=== PATIENT | male | born 1940 | race Caucasian/White ===

== ENCOUNTER 2017-08-04 18:08 | Inpatient (IN) | payer MEDICARE, OTHER ==
[~2017-08-04] VITALS: Ht 170.2 cm; Wt 97.1 kg
[2017-08-04 18:15] VITALS: BP 162/66; PULSE 77; RESP 15; TEMP 98; O2SAT 95
[2017-08-04] MEDS ORDERED: ATOR10TA15 PO (18:59)
[2017-08-04] MEDS ORDERED: CLIN300C5 PO (18:59)
[2017-08-04] MEDS ORDERED: CARV6.252 PO (18:59)
[2017-08-04] MEDS ORDERED: HYDR12.57 PO (18:59)
[2017-08-04] MEDS ORDERED: EMPA1TAB15 PO (18:59)
[2017-08-04] MEDS ORDERED: INSU1INJ14 SQ (18:59)
[2017-08-04] MEDS ORDERED: LEVO150T7 PO (18:59)
[2017-08-04] MEDS ORDERED: GABA300C5 PO (18:59)
[2017-08-04] MEDS ORDERED: DONE5TAB7 PO (18:59)
[2017-08-04] MEDS ORDERED: VICT18IN SQ (18:59)
[2017-08-04] MEDS ORDERED: VANCOMYCIN INJ 1,000 MG in SODIUM CHLOR 0.9% 250 ML INJ 250 ML IV ONE (19:30)
[2017-08-04] MEDS ORDERED: PIPERACIL-TAZO 3.375 GM PREMIX 50 ML IV ONE (19:30)
--- NOTE | 2017-08-04 19:48 | PD ---
HPI Chief Complaint: Skin Problem Time Seen by Provider: 19:09 Travel History International Travel<30 days: No Contact w/Intl Traveler<30days: No Traveled to known affect area: No History of Present Illness HPI pt is IDDM male was in [facility] for 2 days discharged today Parul after 24-36 hrs [place] [facility] IV antibiotic and I and D for a RUQ lateral abdo abscess with cellultis . Pt now has worsenig of his abscess cellilitis spreading outside of the lines drawn around his infection . Pt denies fever no vomit . is taking PO clinda but cellulitis worsening. Pt has HTN and DM . pt non toxic and pain is localized to the RUQ area of abscess with mild purulence coming out of wound , area cellulitis 7 cm round and central eschar is purulent 2 cm PFSH Past Medical History Cancer: Yes (prostate, thyroid) High Cholesterol: Yes Diabetes: Yes Patient Takes Glucophage: Yes Past Surgical History Thoracic Surgery: Yes Other Surgery: Yes (thyroidectomy) Social History Alcohol Use: No Tobacco Use: No Substance Use: No Allergies-Medications (Allergen,Severity, Reaction): Coded Allergies: No Known Allergies (Unverified , 08/04/17) Reported Meds & Prescriptions Reported Meds & Active Scripts Active Reported Clindamycin (Clindamycin HCl) 300 Mg Cap 300 Mg PO Q8H Victoza Inj (Liraglutide Inj) 18 Mg/3 Ml Pen 1.2 Mg SQ DAILY Levothyroxine (Levothyroxine Sodium) 150 Mcg Tab 150 Mcg PO DAILY Tresiba Flextouch Pen Inj (Insulin Degludec Inj) 300 unit/3 ML Pen 60 Units SQ DAILY Hydrochlorothiazide 12.5 Mg Cap 12.5 Mg PO DAILY Gabapentin 300 Mg Cap 300 Mg PO TID Synjardy (Empagliflozin-Metformin) 5-1,000 Mg Tab 1 Tab PO BIDPC Donepezil 5 Mg Tab 5 Mg PO HS Carvedilol 6.25 Mg Tab 6.25 Mg PO BID Atorvastatin (Atorvastatin Calcium) 10 Mg Tab 10 Mg PO HS Physical Exam Narrative GENERAL: pt is awake alert [place] and has bandage over his RUQ lateral aspect SKIN: Warm and dry. HEAD: Atraumatic. Normocephalic. EYES: Pupils equal and round. No scleral icterus. No injection or drainage. ENT: No nasal bleeding or discharge. Mucous membranes pink and moist. NECK: Trachea midline. No JVD. CARDIOVASCULAR: Regular rate and rhythm. RESPIRATORY: No accessory muscle use. Clear to auscultation. Breath sounds equal bilaterally. GASTROINTESTINAL: Abdomen RUQ lateral aspect has cellulits and central escahar pus centeral and radiates out erythema pass lines drawn with sonido MUSCULOSKELETAL: Extremities without clubbing, cyanosis, or edema. No obvious deformities. NEUROLOGICAL: Awake and alert. No obvious cranial nerve deficits. Motor grossly within normal limits. Five out of 5 muscle strength in the arms and legs. Normal speech. PSYCHIATRIC: Appropriate mood and affect; insight and judgment normal. Data Data Last Documented VS Vital Signs Date Time Temp Pulse Resp B/P (MAP) Pulse Ox O2 Delivery O2 Flow Rate FiO2 08/04/17 18:15 98.0 77 15 162/66 (98) 95 Orders Orders Complete Blood Count With Diff (08/04/17 19:28) Comprehensive Metabolic Panel (08/04/17 19:28) Creatine Kinase (Cpk) (08/04/17 19:28) Blood Culture (08/04/17 19:28) Lactic Acid (08/04/17 19:28) Vancomycin Inj (Vancomycin Inj) (08/04/17 19:30) Piperacil-Tazo 3.375 Gm Premix (Zosyn 3. (08/04/17 19:30) Sal Marley MD Aug 04, 2017 19:48
[2017-08-04 20:11] LABS: AUTOMATED NEUTROPHIL # 4.7 TH/MM3 (1.8-7.7); BASOPHIL # 0.1 TH/MM3 (0-0.2); BASOPHIL % 0.9 % (0.0-2.0); EOSINOPHIL # 0.3 TH/MM3 (0-0.4); EOSINOPHIL % 3.4 % (0.0-4.0); HEMATOCRIT 50.5 % (39.0-51.0); HEMOGLOBIN 16.9 GM/DL (13.0-17.0); LYMPH % 26.2 % (9.0-44.0); MEAN CELL VOLUME 85.9 FL (80.0-100.0); MEAN CORPUSCULAR HEMOGLOBIN 28.7 PG (27.0-34.0); MEAN CORPUSCULAR HGB CONC 33.4 % (32.0-36.0); MEAN PLATELET VOLUME 8.6 FL (7.0-11.0); MONOCYTE # 0.7 TH/MM3 (0-0.9); NEUT % 60.5 % (16.0-70.0); PLATELET COUNT 194 TH/MM3 (150-450); RED BLOOD COUNT 5.88 MIL/MM3 (4.50-5.90); RED CELL DISTRIBUTION WIDTH 14.8 % (11.6-17.2); WHITE BLOOD COUNT 7.8 TH/MM3 (4.0-11.0)
[2017-08-04 20:31] LABS: ALBUMIN 3.5 GM/DL (3.4-5.0); AST (GOT) 23 U/L (15-37); BICARBONATE 26.2 MEQ/L (21.0-32.0); BLOOD UREA NITROGEN 15 MG/DL (7-18); CALCIUM 8.9 MG/DL (8.5-10.1); CHLORIDE 104 MEQ/L (98-107); CREATININE 1.17 MG/DL (0.60-1.30); GLOMERULAR FILTRATION RATE 61 ML/MIN (>89); GLUCOSE,RANDOM 85 MG/DL (74-106); SODIUM (NA) 139 MEQ/L (136-145)
[2017-08-04 20:32] LABS: ALT (GPT) 27 U/L (12-78)
[2017-08-04 20:34] LABS: ALKALINE PHOSPHATASE 87 U/L (45-117); TOTAL BILIRUBIN ADULT 0.5 MG/DL (0.2-1.0); TOTAL PROTEIN 7.5 GM/DL (6.4-8.2)
[2017-08-04 21:12] LABS: BANDS 1 % (0-6); BASOPHILS 2 % (0-2); LYMPHOCYTES 21 % (9-44); MONOCYTES 6 % (0-8); NEUTROPHIL # MANUAL DIFF 5.2 TH/MM3 (1.8-7.7); POLYS (SEG NEUTROPHILS) 66 % (16-70)
[2017-08-04 21:21] VITALS: BP 147/67; PULSE 65; RESP 17; O2SAT 95
[2017-08-05] MEDS ORDERED: Vancomycin Consult Pharmacy 1 EA OTHER SCH (00:30)
[2017-08-05] MEDS ORDERED: GLUCAGON 1 MG/ML VIAL OTHER PRN (00:30)
[2017-08-05] MEDS ORDERED: ACETAMINOPHEN 325 MG TAB PO PRN (00:30)
[2017-08-05] MEDS ORDERED: LACTULOSE SYRUP 20 GM/30 ML CUP PO PRN (00:30)
[2017-08-05] MEDS ORDERED: NALOXONE HCL 0.4 MG/ML AMP IV PUSH PRN (00:30)
[2017-08-05] MEDS ORDERED: DEXTROSE 50% IN WATER 50 ML VIAL(D50) IV PUSH PRN (00:30)
[2017-08-05] MEDS ORDERED: ONDANSETRON HCL 4 MG/2 ML VIAL IVP PRN (00:30)
[2017-08-05] MEDS ORDERED: BISACODYL 10 MG SUPP RECTAL PRN (00:30)
[2017-08-05] MEDS ORDERED: MAGNESIUM HYDROXIDE SUSP 30 ML CUP PO PRN (00:30)
[2017-08-05] MEDS ORDERED: SODIUM CHLORIDE 0.9% FLUSH 10 ML FLUSH IV FLUSH PRN (00:30)
[2017-08-05] MEDS ORDERED: SENNOSIDES 8.6 MG TAB PO PRN (00:30)
[2017-08-05 00:48] VITALS: BP 139/70; PULSE 74; RESP 18; O2SAT 95
[2017-08-05] MEDS ORDERED: VANCOMYCIN 1,000 MG/NS 250 ML IV ONE ×2 (01:00)
[2017-08-05] MEDS: HEPARIN SODIUM - SQ 10,000 UNITS/ML VIAL SQ SCH ×3 (01:15→13:17)
[2017-08-05] MEDS: PIPERACIL-TAZO 3.375 GM PREMIX 50 ML IV SCH ×4 (02:00→19:59)
[2017-08-05 02:21] VITALS: BP 141/63; PULSE 71; RESP 18; TEMP 97.2; O2SAT 95
--- NOTE | 2017-08-05 04:01 | HHI.HP ---
HPI Service [facility] Primary Care Physician Larry Rivers III, MD Admission Diagnosis Cellulitis of abdo failing outpt PO antiBx Diagnoses: Travel History International Travel<30 Days: No Contact w/Intl Traveler <30 Da: No Traveled to Known Affected Are: No History of Present Illness 80-year-old male with a past medical history significant for diabetes mellitus, hypothyroidism, hypertension and hyperlipidemia presents to the emergency department for evaluation of cellulitis of his back. The patient was released from [facility] yesterday morning after being treated with IV vancomycin and clindamycin. He was discharged on oral clindamycin. Wound cultures were "inconclusive" per the family. Incision and drainage was performed to the emergency department with minimal expression of purulent material. CT of the chest showed minimally ill-defined fat stranding containing punctate pockets of air compatible with cellulitis and no well organized walled off peripherally enhancing fluid collection. Since his discharge from the hospital the area of erythema has expanded. There are 2 small incisions draining purulent material. No fevers/chills. No chest pain or shortness of breath. No abdominal pain. No nausea/vomiting/diarrhea. No lateralizing signs/symptoms. Review of Systems Except as stated in HPI: all other systems reviewed are Neg Past Family Social History Past Medical History diabetes mellitus, hypothyroidism, hypertension and hyperlipidemia Past Surgical History Thyroidectomy Prostatectomy Thoracotomy Reported Medications Reported Meds & Active Scripts Active Reported Clindamycin (Clindamycin HCl) 300 Mg Cap 300 Mg PO Q8H Victoza Inj (Liraglutide Inj) 18 Mg/3 Ml Pen 1.2 Mg SQ DAILY Levothyroxine (Levothyroxine Sodium) 150 Mcg Tab 150 Mcg PO DAILY Tresiba Flextouch Pen Inj (Insulin Degludec Inj) 300 unit/3 ML Pen 60 Units SQ DAILY Hydrochlorothiazide 12.5 Mg Cap 12.5 Mg PO DAILY Gabapentin 300 Mg Cap 300 Mg PO TID Synjardy (Empagliflozin-Metformin) 5-1,000 Mg Tab 1 Tab PO BIDPC Donepezil 5 Mg Tab 5 Mg PO HS Carvedilol 6.25 Mg Tab 6.25 Mg PO BID Atorvastatin (Atorvastatin Calcium) 10 Mg Tab 10 Mg PO HS Allergies: Coded Allergies: No Known Allergies (Unverified , 08/04/17) Family History Negative for CAD/DM Social History Negative for alcohol, tobacco and illicit drugs Physical Exam Vital Signs Vital Signs Date Time Temp Pulse Resp B/P (MAP) Pulse Ox O2 Delivery O2 Flow Rate FiO2 08/05/17 02:21 97.2 71 18 141/63 (89) 95 08/05/17 01:18 08/05/17 00:48 74 18 139/70 (93) 95 Room Air 08/04/17 21:21 65 17 147/67 (93) 95 Room Air 08/04/17 18:15 98.0 77 15 162/66 (98) 95 Physical Exam GENERAL: male lying in bed SKIN: Large area of erythema on the right upper back/side with 2 draining areas of purulent material. No fluctuance or induration. HEAD: Atraumatic. Normocephalic. No temporal or scalp tenderness. EYES: Pupils equal round and reactive. Extraocular motions intact. No scleral icterus. No injection or drainage. ENT: Nose without bleeding, purulent drainage or septal hematoma. Throat without erythema, tonsillar hypertrophy or exudate. Uvula midline. Airway patent. NECK: Trachea midline. No JVD or lymphadenopathy. Supple, nontender, no meningeal signs. CARDIOVASCULAR: Regular rate and rhythm without murmurs, gallops, or rubs. RESPIRATORY: Clear to auscultation. Breath sounds equal bilaterally. No wheezes , rales, or rhonchi. GASTROINTESTINAL: Abdomen soft, non-tender, nondistended. No hepato-splenomegaly , or palpable masses. No guarding. MUSCULOSKELETAL: Extremities without clubbing, cyanosis, or edema. No joint tenderness, effusion, or edema noted. No calf tenderness. NEUROLOGICAL: Awake and alert. Cranial nerves II through XII intact. Motor and sensory grossly within normal limits. Normal speech. Laboratory Laboratory Tests Test 08/04/17 19:33 White Blood Count 7.8 Red Blood Count 5.88 Hemoglobin 16.9 Hematocrit 50.5 Mean Corpuscular Volume 85.9 Mean Corpuscular Hemoglobin 28.7 Mean Corpuscular Hemoglobin Concent 33.4 Red Cell Distribution Width 14.8 Platelet Count 194 Mean Platelet Volume 8.6 Neutrophils (%) (Auto) 60.5 Lymphocytes (%) (Auto) 26.2 Monocytes (%) (Auto) 9.0 Eosinophils (%) (Auto) 3.4 Basophils (%) (Auto) 0.9 Neutrophils # (Auto) 4.7 Lymphocytes # (Auto) 2.0 Monocytes # (Auto) 0.7 Eosinophils # (Auto) 0.3 Basophils # (Auto) 0.1 CBC Comment AUTO DIFF Differential Total Cells Counted 100 Neutrophils % (Manual) 66 Band Neutrophils % 1 Lymphocytes % 21 Monocytes % 6 Eosinophils % 4 Basophils % 2 Neutrophils # (Manual) 5.2 Differential Comment FINAL DIFF MANUAL Platelet Estimate NORMAL Platelet Morphology Comment NORMAL Blood Urea Nitrogen 15 Creatinine 1.17 Random Glucose 85 Total Protein 7.5 Albumin 3.5 Calcium Level 8.9 Alkaline Phosphatase 87 Aspartate Amino Transf (AST/SGOT) 23 Alanine Aminotransferase (ALT/SGPT) 27 Total Bilirubin 0.5 Sodium Level 139 Potassium Level 3.9 Chloride Level 104 Carbon Dioxide Level 26.2 Anion Gap 9 Estimat Glomerular Filtration Rate 61 Lactic Acid Level 0.9 Total Creatine Kinase 213 Date/Time Source Procedure Growth Status 08/04/17 19:33 Blood Peripheral Aerobic Blood Culture Pending Received 08/04/17 19:33 Blood Peripheral Anaerobic Blood Culture Pending Received 08/04/17 23:15 Wound Abdomen Gram Stain Pending Received 08/04/17 23:15 Wound Abdomen Wound Culture Pending Received Result Diagram: 08/04/17193208/04/171932 Caprini VTE Risk Assessment Caprini VTE Risk Assessment: Mod/High Risk (score >= 2) Caprini Risk Assessment Model Point Value = 1 Point Value = 2 Point Value = 3 Point Value = 5 Age 41-60 Minor surgery BMI > 25 kg/m2 Swollen legs Varicose veins or History of unexplained or recurrent spontaneous Oral contraceptives or hormone replacement Sepsis (< 1 month) Serious lung disease, including pneumonia (< 1 month) Abnormal pulmonary function Acute myocardial infarction Congestive heart failure (< 1 month) History of inflammatory bowel disease Medical patient at bed rest Age 61-74 Arthroscopic surgery Major open surgery (> 45 min) Laparoscopic surgery (> 45 min) Malignancy Confined to bed (> 72 hours) Immobilizing plaster cast Central venous access Age >= 75 History of VTE Family history of VTE Factor V Leiden Prothrombin [id number] Lupus anticoagulant Anticardiolipin antibodies Elevated serum homocysteine Heparin-induced thrombocytopenia Other congenital or acquired thrombophilia Stroke (< 1 month) Elective arthroplasty Hip, pelvis, or leg fracture Acute spinal cord injury (< 1 month) Prophylaxis Regimen Total Risk Factor Score Risk Level Prophylaxis Regimen 0-1 Low Early ambulation 2 Moderate Order ONE of the following: *Sequential Compression Device (SCD) *Heparin 5000 units SQ BID 3-4 Higher Order ONE of the following medications: *Heparin 5000 units SQ TID *Enoxaparin/Lovenox 40 mg SQ daily (WT < 150 kg, CrCl > 30 mL/min) *Enoxaparin/Lovenox 30 mg SQ daily (WT < 150 kg, CrCl > 10-29 mL/min) *Enoxaparin/Lovenox 30 mg SQ BID (WT < 150 kg, CrCl > 30 mL/min) AND/OR *Sequential Compression Device (SCD) 5 or more Highest Order ONE of the following medications: *Heparin 5000 units SQ TID (Preferred with Epidurals) *Enoxaparin/Lovenox 40 mg SQ daily (WT < 150 kg, CrCl > 30 mL/min) *Enoxaparin/Lovenox 30 mg SQ daily (WT < 150 kg, CrCl > 10-29 mL/min) *Enoxaparin/Lovenox 30 mg SQ BID (WT < 150 kg, CrCl > 30 mL/min) AND *Sequential Compression Device (SCD) Assessment and Plan Assessment and Plan Assessment/plan: 1. Cellulitis CT of the thorax done at [facility] did not show any distinct abscess, results personally reviewed Status post vancomycin and clindamycin at [facility], discharged on p.o. clindamycin Vancomycin/Zosyn Blood/wound cultures pending Tailor antibiotics once cultures result 2. Diabetes mellitus Sliding-scale insulin Monitor blood glucose 3. Hypothyroidism/hypertension/hyperlipidemia Continue home medications FEN Heart healthy, diabetic diet Electrolytes: Monitor and replete as needed Heparin Physician Certification 2 Midnight Certification Type: Admission for Inpatient Services Order for Inpatient Services The services are ordered in accordance with Medicare regulations or non- Medicare payer requirements, as applicable. In the case of services not specified as inpatient-only, they are appropriately provided as inpatient services in accordance with the 2-midnight benchmark. Estimated LOS (days): 2 2 days is the estimated time the patient will need to remain in the hospital, assuming treatment plan goals are met and no additional complications. Post-Hospital Plan: Not yet determined Mary Anne Mccray MD Aug 05, 2017 04:00
[2017-08-05] MEDS: LEVOTHYROXINE SODIUM 150 MCG TAB PO SCH (06:22)
[2017-08-05] MEDS ORDERED: VANCOMYCIN INJ 1,000 MG in SODIUM CHLOR 0.9% 250 ML INJ 250 ML IV SCH (07:30)
[2017-08-05] MEDS: INSULIN ASPART SUPPLEMENTAL SCALE SQ SCH ×4 (07:59→20:06)
[2017-08-05 08:00] VITALS: BP 136/66; PULSE 60; RESP 20; TEMP 97.4; O2SAT 94
[2017-08-05] MEDS: HYDROCHLOROTHIAZIDE 12.5 MG CAP PO SCH (08:01)
[2017-08-05] MEDS: CARVEDILOL 6.25 MG TAB PO SCH ×2 (08:01→20:00)
[2017-08-05] MEDS: GABAPENTIN 300 MG CAP PO SCH ×3 (08:01→17:05)
[2017-08-05] MEDS: SODIUM CHLORIDE 0.9% FLUSH 10 ML FLUSH IV FLUSH SCH ×2 (08:01→20:00)
[2017-08-05] MEDS: DOCUSATE SODIUM 50 MG/SENNA 8.6 MG TAB PO SCH ×2 (08:01→20:01)
--- NOTE | 2017-08-05 11:08 | HHI.PR ---
Subjective Remarks in no acute distress. denies pain. no fever. family at the bedside. Objective Vitals Vital Signs Date Time Temp Pulse Resp B/P (MAP) Pulse Ox O2 Delivery O2 Flow Rate FiO2 08/05/17 08:00 97.4 60 20 136/66 (89) 94 08/05/17 02:21 97.2 71 18 141/63 (89) 95 08/05/17 01:18 08/05/17 00:48 74 18 139/70 (93) 95 Room Air 08/04/17 21:21 65 17 147/67 (93) 95 Room Air 08/04/17 18:15 98.0 77 15 162/66 (98) 95 I/O 08/04/17 08/04/17 08/04/17 08/05/17 08/05/17 08/05/17 07:00 15:00 23:00 07:00 15:00 23:00 Intake Total 300 ml Balance 300 ml Intake IV Total 300 ml # Voids 0 Result Diagram: 08/04/17193208/04/171932 Objective Remarks GENERAL: This is a well-nourished, well-developed patient, in no apparent distress. CARDIOVASCULAR: Regular rate and regular rhythm without murmurs, gallops, or rubs. RESPIRATORY: Clear to auscultation. Breath sounds equal bilaterally. No wheezes , rales, or rhonchi. GASTROINTESTINAL: Abdomen soft, non-tender, nondistended. Normal, active bowel sounds MUSCULOSKELETAL: Extremities without clubbing, cyanosis, or edema. NEURO: Alert & Oriented x4 to person, place, time, situation. Moves all ext x4 skin; mild erythema over the right chest wall- seems to be improving. Medications and IVs Inpatient Medications Acetaminophen (Tylenol) 650 mg Q4H PRN PO TEMP > 100.4; Start 08/05/17 at 00:30 Atorvastatin Calcium (Lipitor) 10 mg HS PO ; Start 08/05/17 at 21:00 Bisacodyl (Dulcolax Supp) 10 mg DAILY PRN RECTAL SEVERE CONSITIPATION; Start at 00:30 Carvedilol (Coreg) 6.25 mg BID PO Last administered on 08/05/17at 08:01; Start 08/05/17 at 09:00 Dextrose (D50w (Vial) Inj) 50 ml UNSCH PRN IV PUSH HYPOGLYCEMIA-SEE COMMENTS; Start 08/05/17 at 00:30 Donepezil HCl (Aricept) 5 mg HS PO ; Start 08/05/17 at 21:00 Gabapentin (Neurontin) 300 mg TID PO Last administered on 08/05/17at 08:01; Start 08/05/17 at 09:00 Glucagon (Glucagon Inj) 1 mg UNSCH PRN OTHER HYPOGLYCEMIA-SEE COMMENTS; Start 08/05/17 at 00:30 Heparin Sodium (Porcine) (Heparin Inj) 5,000 units Q8HR SQ Last administered on 08/05/17at 06:22; Start 08/05/17 at 00:30 Hydrochlorothiazide (Microzide) 12.5 mg DAILY PO Last administered on at 08:01; Start 08/05/17 at 09:00 Insulin Aspart (NovoLOG SUPPLEMENTAL SCALE) 1 ACHS SLIDING SCALE SQ ; Start at 08:00 Lactulose (Lactulose Liq) 30 ml DAILY PRN PO SEVERE CONSITIPATION; Start at 00:30 Levothyroxine Sodium (Synthroid) 150 mcg DAILY@0600 PO Last administered on at 06:22; Start 08/05/17 at 06:00 Magnesium Hydroxide (Milk Of Magnesia Liq) 30 ml Q12H PRN PO Mild constipation ; Start 08/05/17 at 00:30 Miscellaneous Information ([facility] [place]dered [place] Info) SPECIFIC LAB TO BE DRAWN:VANCOMY... ONCE ONCE .XX ; Start 08/08/17 at 00:45; Stop 08/08/17 at 00: 46 Naloxone HCl (Narcan Inj) 0.4 mg UNSCH PRN IV PUSH SEE LABEL COMMENTS; Start at 00:30 Ondansetron HCl (Zofran Inj) 4 mg Q6H PRN IVP NAUSEA OR VOMITING; Start at 00:30 Pharmacy Profile Note 0 ml @ 0 mls/hr UNSCH OTHER ; Start 08/05/17 at 00:30 Piperacillin Sod/ Tazobactam Sod 50 ml @ 100 mls/hr Q6H IV Last administered on 08/05/17at 08:01; Start 08/05/17 at 02:00 Senna/Docusate Sodium (Gloria-Colace) 1 tab BID PO Last administered on at 08:01; Start 08/05/17 at 09:00 Sennosides (Senokot) 17.2 mg Q12H PRN PO Moderate constipation; Start 08/05/17 at 00:30 Sodium Chloride (NS Flush) 2 ml BID IV FLUSH Last administered on 08/05/17at 08: 01; Start 08/05/17 at 09:00 Vancomycin HCl 1000 mg/Sodium Chloride 250 ml @ 250 mls/hr ONCE ONCE IV Last administered on 08/05/17at 01:15; Start 08/05/17 at 01:00; Stop 08/05/17 at 01:59 ; Status DC Vancomycin HCl 1500 mg/Sodium Chloride 515 ml @ 257.5 mls/ hr Q24H IV ; Start 08/06/17 at 01:00 A/P Assessment and Plan A/P 1. Cellulitis CT of the thorax done at [facility] did not show any distinct abscess. Status post vancomycin and clindamycin at [facility], discharged on p.o. clindamycin continue Vancomycin/Zosyn Blood/wound cultures pending Tailor antibiotics once cultures result 2. Diabetes mellitus Sliding-scale insulin Monitor blood glucose 3. Hypothyroidism/hypertension/hyperlipidemia Continue home medications Discharge Planning dc planning within the next 24-48 hrs- pending the clinical course and cultures. Wanda Galvez MD Aug 05, 2017 11:08
[2017-08-05 12:00] VITALS: BP 117/69; PULSE 58; RESP 18; TEMP 97.2; O2SAT 94
[2017-08-05 16:00] VITALS: BP 163/70; PULSE 71; RESP 16; TEMP 97.9; O2SAT 92
[2017-08-05 20:00] VITALS: BP 158/86; PULSE 77; RESP 18; TEMP 97.4; O2SAT 92
[2017-08-05] MEDS: DONEPEZIL HCL 5 MG TAB PO SCH (20:00)
[2017-08-05] MEDS: ATORVASTATIN 10 MG TAB PO SCH (20:01)
[2017-08-06] VITALS: BP 123/79; PULSE 74; RESP 18; TEMP 97.2; O2SAT 92
[2017-08-06] MEDS: VANCOMYCIN INJ 1,500 MG in SODIUM CHLORID 0.9% 500 ML INJ 500 ML IV SCH (00:43)
[2017-08-06] MEDS: HEPARIN SODIUM - SQ 10,000 UNITS/ML VIAL SQ SCH ×4 (00:44→21:56)
[2017-08-06] MEDS: PIPERACIL-TAZO 3.375 GM PREMIX 50 ML IV SCH ×4 (00:44→20:03)
[2017-08-06] MEDS: LEVOTHYROXINE SODIUM 150 MCG TAB PO SCH (05:29)
--- NOTE | 2017-08-06 06:58 | HHI.PR ---
Subjective Remarks in no acute distress. afebrile. denies pain. erythema over the right chest seems to be improving. Objective Vitals Vital Signs Date Time Temp Pulse Resp B/P (MAP) Pulse Ox O2 Delivery O2 Flow Rate FiO2 08/06/17 00:00 97.2 74 18 123/79 (94) 92 08/05/17 20:00 97.4 77 18 158/86 (110) 92 08/05/17 16:00 97.9 71 16 163/70 (101) 92 08/05/17 12:00 97.2 58 18 117/69 (85) 94 08/05/17 08:00 97.4 60 20 136/66 (89) 94 I/O 08/05/17 08/05/17 08/05/17 08/06/17 08/06/17 08/06/17 07:00 15:00 23:00 07:00 15:00 23:00 Intake Total 100 ml 1800 ml Balance 100 ml 1800 ml Intake Oral 1800 ml IV Total 100 ml # Voids 0 3 2 # Bowel Movements 1 Result Diagram: 08/04/17193208/04/171932 Objective Remarks GENERAL: This is a well-nourished, well-developed patient, in no apparent distress. CARDIOVASCULAR: Regular rate and regular rhythm without murmurs, gallops, or rubs. RESPIRATORY: Clear to auscultation. Breath sounds equal bilaterally. No wheezes , rales, or rhonchi. GASTROINTESTINAL: Abdomen soft, non-tender, nondistended. Normal, active bowel sounds MUSCULOSKELETAL: Extremities without clubbing, cyanosis, or edema. NEURO: Alert & Oriented x4 to person, place, time, situation. Moves all ext x4 skin; mild erythema over the right chest wall- seems to be improving. Medications and IVs Inpatient Medications Acetaminophen (Tylenol) 650 mg Q4H PRN PO TEMP > 100.4; Start 08/05/17 at 00:30 Atorvastatin Calcium (Lipitor) 10 mg HS PO Last administered on 08/05/17at 20:01 ; Start 08/05/17 at 21:00 Bisacodyl (Dulcolax Supp) 10 mg DAILY PRN RECTAL SEVERE CONSITIPATION; Start at 00:30 Carvedilol (Coreg) 6.25 mg BID PO Last administered on 08/05/17at 20:00; Start 08/05/17 at 09:00 Dextrose (D50w (Vial) Inj) 50 ml UNSCH PRN IV PUSH HYPOGLYCEMIA-SEE COMMENTS; Start 08/05/17 at 00:30 Donepezil HCl (Aricept) 5 mg HS PO Last administered on 08/05/17at 20:00; Start 08/05/17 at 21:00 Gabapentin (Neurontin) 300 mg TID PO Last administered on 08/05/17at 17:05; Start 08/05/17 at 09:00 Glucagon (Glucagon Inj) 1 mg UNSCH PRN OTHER HYPOGLYCEMIA-SEE COMMENTS; Start 08/05/17 at 00:30 Heparin Sodium (Porcine) (Heparin Inj) 5,000 units Q8HR SQ Last administered on 08/06/17at 05:29; Start 08/05/17 at 00:30 Hydrochlorothiazide (Microzide) 12.5 mg DAILY PO Last administered on at 08:01; Start 08/05/17 at 09:00 Insulin Aspart (NovoLOG SUPPLEMENTAL SCALE) 1 ACHS SLIDING SCALE SQ ; Start at 08:00 Lactulose (Lactulose Liq) 30 ml DAILY PRN PO SEVERE CONSITIPATION; Start at 00:30 Levothyroxine Sodium (Synthroid) 150 mcg DAILY@0600 PO Last administered on at 05:29; Start 08/05/17 at 06:00 Magnesium Hydroxide (Milk Of Magnesia Liq) 30 ml Q12H PRN PO Mild constipation ; Start 08/05/17 at 00:30 Miscellaneous Information ([facility] Ordered Lab Info) SPECIFIC LAB TO BE DRAWN:VANCOMY... ONCE ONCE .XX ; Start 08/08/17 at 00:45; Stop 08/08/17 at 00: 46 Naloxone HCl (Narcan Inj) 0.4 mg UNSCH PRN IV PUSH SEE LABEL COMMENTS; Start at 00:30 Ondansetron HCl (Zofran Inj) 4 mg Q6H PRN IVP NAUSEA OR VOMITING; Start at 00:30 Pharmacy Profile Note 0 ml @ 0 mls/hr UNSCH OTHER ; Start 08/05/17 at 00:30 Piperacillin Sod/ Tazobactam Sod 50 ml @ 100 mls/hr Q6H IV Last administered on 08/06/17at 00:44; Start 08/05/17 at 02:00 Senna/Docusate Sodium (Gloria-Colace) 1 tab BID PO Last administered on at 08:01; Start 08/05/17 at 09:00 Sennosides (Senokot) 17.2 mg Q12H PRN PO Moderate constipation; Start 08/05/17 at 00:30 Sodium Chloride (NS Flush) 2 ml BID IV FLUSH Last administered on 08/05/17at 20: 00; Start 08/05/17 at 09:00 Vancomycin HCl 1000 mg/Sodium Chloride 250 ml @ 250 mls/hr ONCE ONCE IV Last administered on 08/05/17at 01:15; Start 08/05/17 at 01:00; Stop 08/05/17 at 01:59 ; Status DC Vancomycin HCl 1500 mg/Sodium Chloride 515 ml @ 257.5 mls/ hr Q24H IV Last administered on 08/06/17at 00:43; Start 08/06/17 at 01:00 A/P Assessment and Plan A/P 1. Cellulitis CT of the thorax done at [facility] did not show any distinct abscess. Status post vancomycin and clindamycin at [facility], discharged on p.o. clindamycin continue Vancomycin/Zosyn Blood/wound cultures negative so far. Tailor antibiotics once cultures finalized. 2. Diabetes mellitus Sliding-scale insulin Monitor blood glucose 3. Hypothyroidism/hypertension/hyperlipidemia Continue home medications Discharge Planning dc planning ; home within the next one-two days if continues to improve. Wanda Galvez MD Aug 06, 2017 06:58
[2017-08-06] MEDS: INSULIN ASPART SUPPLEMENTAL SCALE SQ SCH ×4 (07:14→20:10)
[2017-08-06 08:00] VITALS: BP 132/62; PULSE 72; RESP 16; TEMP 97; O2SAT 94
[2017-08-06] MEDS: CARVEDILOL 6.25 MG TAB PO SCH ×2 (08:00→20:10)
[2017-08-06] MEDS: GABAPENTIN 300 MG CAP PO SCH ×3 (08:00→16:54)
[2017-08-06] MEDS: HYDROCHLOROTHIAZIDE 12.5 MG CAP PO SCH (08:01)
[2017-08-06] MEDS: DOCUSATE SODIUM 50 MG/SENNA 8.6 MG TAB PO SCH ×2 (08:04→20:10)
[2017-08-06] MEDS: SODIUM CHLORIDE 0.9% FLUSH 10 ML FLUSH IV FLUSH SCH ×2 (08:12→20:03)
[2017-08-06 09:06] LABS: AUTOMATED NEUTROPHIL # 3.3 TH/MM3 (1.8-7.7); BASOPHIL # 0.1 TH/MM3 (0-0.2); EOSINOPHIL # 0.2 TH/MM3 (0-0.4); EOSINOPHIL % 4.2 % (0.0-4.0); HEMATOCRIT 47.8 % (39.0-51.0); HEMOGLOBIN 16.3 GM/DL (13.0-17.0); LYMPH % 32.3 % (9.0-44.0); LYMPHOCYTE # 1.9 TH/MM3 (1.0-4.8); MEAN CELL VOLUME 85.6 FL (80.0-100.0); MEAN CORPUSCULAR HEMOGLOBIN 29.1 PG (27.0-34.0); MEAN PLATELET VOLUME 8.4 FL (7.0-11.0); MONO % 7.2 % (0.0-8.0); MONOCYTE # 0.4 TH/MM3 (0-0.9); NEUT % 55.3 % (16.0-70.0); PLATELET COUNT 183 TH/MM3 (150-450); RED BLOOD COUNT 5.58 MIL/MM3 (4.50-5.90); RED CELL DISTRIBUTION WIDTH 14.8 % (11.6-17.2); WHITE BLOOD COUNT 5.9 TH/MM3 (4.0-11.0)
[2017-08-06 09:53] LABS: BICARBONATE 26.3 MEQ/L (21.0-32.0); CALCIUM 8.9 MG/DL (8.5-10.1); CREATININE 1.3 MG/DL (0.60-1.30)
[2017-08-06 10:39] LABS: BASOPHILS 1 % (0-2); BLASTS 2 % (0-0); LYMPHOCYTES 28 % (9-44); MONOCYTES 6 % (0-8); NEUTROPHIL # MANUAL DIFF 3.2 TH/MM3 (1.8-7.7); POLYS (SEG NEUTROPHILS) 55 % (16-70)
[2017-08-06 12:00] VITALS: BP 125/67; PULSE 68; RESP 18; TEMP 97.6; O2SAT 94
[2017-08-06 16:00] VITALS: BP 123/72; PULSE 58; RESP 16; TEMP 97.7; O2SAT 95
[2017-08-06 20:00] VITALS: BP 152/74; PULSE 72; RESP 22; TEMP 97.9; O2SAT 96
[2017-08-06] MEDS: DONEPEZIL HCL 5 MG TAB PO SCH (20:03)
[2017-08-06] MEDS: ATORVASTATIN 10 MG TAB PO SCH (20:10)
[2017-08-07] VITALS: BP 136/69; PULSE 71; RESP 20; TEMP 98; O2SAT 94
[2017-08-07] MEDS: PIPERACIL-TAZO 3.375 GM PREMIX 50 ML IV SCH ×2 (00:23→09:34)
[2017-08-07] MEDS: VANCOMYCIN INJ 1,500 MG in SODIUM CHLORID 0.9% 500 ML INJ 500 ML IV SCH (00:23)
[2017-08-07] MEDS: HEPARIN SODIUM - SQ 10,000 UNITS/ML VIAL SQ SCH (04:11)
[2017-08-07] MEDS: LEVOTHYROXINE SODIUM 150 MCG TAB PO SCH (04:11)
[2017-08-07] MEDS: DOCUSATE SODIUM 50 MG/SENNA 8.6 MG TAB PO SCH (07:15)
[2017-08-07 08:00] VITALS: BP 121/68; PULSE 60; RESP 17; TEMP 97.4; O2SAT 93
[2017-08-07] MEDS: INSULIN ASPART SUPPLEMENTAL SCALE SQ SCH ×2 (08:00→12:00)
[2017-08-07] MEDS: SODIUM CHLORIDE 0.9% FLUSH 10 ML FLUSH IV FLUSH SCH (09:34)
[2017-08-07] MEDS: HYDROCHLOROTHIAZIDE 12.5 MG CAP PO SCH (09:34)
[2017-08-07] MEDS: CARVEDILOL 6.25 MG TAB PO SCH (09:34)
[2017-08-07] MEDS: GABAPENTIN 300 MG CAP PO SCH ×2 (09:34→13:00)
--- NOTE | 2017-08-07 11:27 | HHI.PR ---
Subjective Remarks in no acute distress. afebrile. erythema over the right chest wall seems to be improving. no new complaints. Objective Vitals Vital Signs Date Time Temp Pulse Resp B/P (MAP) Pulse Ox O2 Delivery O2 Flow Rate FiO2 08/07/17 08:00 97.4 60 17 121/68 (85) 93 08/07/17 00:00 98.0 71 20 136/69 (91) 94 08/06/17 20:00 97.9 72 22 152/74 (100) 96 08/06/17 16:00 97.7 58 16 123/72 (89) 95 08/06/17 12:00 97.6 68 18 125/67 (86) 94 I/O 08/06/17 08/06/17 08/06/17 08/07/17 08/07/17 08/07/17 07:00 15:00 23:00 07:00 15:00 23:00 Intake Total 600 ml 100 ml 1850 ml 910 ml Balance 600 ml 100 ml 1850 ml 910 ml Intake Oral 1800 ml 360 ml IV Total 600 ml 100 ml 50 ml 550 ml # Voids 2 4 2 # Bowel Movements 1 0 Result Diagram: 08/06/17 0745 08/06/17 0745 Objective Remarks GENERAL: This is a well-nourished, well-developed patient, in no apparent distress. CARDIOVASCULAR: Regular rate and regular rhythm without murmurs, gallops, or rubs. RESPIRATORY: Clear to auscultation. Breath sounds equal bilaterally. No wheezes , rales, or rhonchi. GASTROINTESTINAL: Abdomen soft, non-tender, nondistended. Normal, active bowel sounds MUSCULOSKELETAL: Extremities without clubbing, cyanosis, or edema. NEURO: Alert & Oriented x4 to person, place, time, situation. Moves all ext x4 skin; mild erythema over the right chest wall- seems to be improving. Medications and IVs Inpatient Medications Acetaminophen (Tylenol) 650 mg Q4H PRN PO TEMP > 100.4; Start 08/05/17 at 00:30 Atorvastatin Calcium (Lipitor) 10 mg HS PO Last administered on 08/06/17at 20:10 ; Start 08/05/17 at 21:00 Bisacodyl (Dulcolax Supp) 10 mg DAILY PRN RECTAL SEVERE CONSITIPATION; Start at 00:30 Carvedilol (Coreg) 6.25 mg BID PO Last administered on 08/07/17at 09:34; Start 08/05/17 at 09:00 Dextrose (D50w (Vial) Inj) 50 ml UNSCH PRN IV PUSH HYPOGLYCEMIA-SEE COMMENTS; Start 08/05/17 at 00:30 Donepezil HCl (Aricept) 5 mg HS PO Last administered on 08/06/17at 20:03; Start 08/05/17 at 21:00 Gabapentin (Neurontin) 300 mg TID PO Last administered on 08/07/17at 09:34; Start 08/05/17 at 09:00 Glucagon (Glucagon Inj) 1 mg UNSCH PRN OTHER HYPOGLYCEMIA-SEE COMMENTS; Start 08/05/17 at 00:30 Heparin Sodium (Porcine) (Heparin Inj) 5,000 units Q8HR SQ Last administered on 08/07/17at 04:11; Start 08/05/17 at 00:30 Hydrochlorothiazide (Microzide) 12.5 mg DAILY PO Last administered on at 09:34; Start 08/05/17 at 09:00 Insulin Aspart (NovoLOG SUPPLEMENTAL SCALE) 1 ACHS SLIDING SCALE SQ Last administered on 08/06/17at 12:39; Start 08/05/17 at 08:00 Lactulose (Lactulose Liq) 30 ml DAILY PRN PO SEVERE CONSITIPATION; Start at 00:30 Levothyroxine Sodium (Synthroid) 150 mcg DAILY@0600 PO Last administered on at 04:11; Start 08/05/17 at 06:00 Magnesium Hydroxide (Milk Of Magnesia Liq) 30 ml Q12H PRN PO Mild constipation ; Start 08/05/17 at 00:30 Miscellaneous Information ([facility] Ordered Lab Info) SPECIFIC LAB TO BE DRAWN:VANCOMY... ONCE ONCE .XX ; Start 08/08/17 at 00:45; Stop 08/08/17 at 00: 46 Naloxone HCl (Narcan Inj) 0.4 mg UNSCH PRN IV PUSH SEE LABEL COMMENTS; Start at 00:30 Ondansetron HCl (Zofran Inj) 4 mg Q6H PRN IVP NAUSEA OR VOMITING; Start at 00:30 Pharmacy Profile Note 0 ml @ 0 mls/hr UNSCH OTHER ; Start 08/05/17 at 00:30 Piperacillin Sod/ Tazobactam Sod 50 ml @ 100 mls/hr Q6H IV Last administered on 08/07/17at 09:34; Start 08/05/17 at 02:00 Senna/Docusate Sodium (Gloria-Colace) 1 tab BID PO Last administered on at 08:01; Start 08/05/17 at 09:00 Sennosides (Senokot) 17.2 mg Q12H PRN PO Moderate constipation; Start 08/05/17 at 00:30 Sodium Chloride (NS Flush) 2 ml BID IV FLUSH Last administered on 08/07/17at 09: 34; Start 08/05/17 at 09:00 Vancomycin HCl 1000 mg/Sodium Chloride 250 ml @ 250 mls/hr ONCE ONCE IV Last administered on 08/05/17at 01:15; Start 08/05/17 at 01:00; Stop 08/05/17 at 01:59 ; Status DC Vancomycin HCl 1500 mg/Sodium Chloride 515 ml @ 257.5 mls/ hr Q24H IV Last administered on 08/07/17at 00:23; Start 08/06/17 at 01:00 A/P Assessment and Plan A/P 1. Cellulitis/ abscess of the right chest wall s/p I/D in ER at [facility] CT of the thorax done at [facility] did not show any distinct abscess. evaluated by surgery and no surgery recommended. Status post vancomycin and clindamycin at [facility], discharged on p.o. antibiotics. wound culture with MRSA- blood cultures negative. will switch to Doxycycline upon discharge. 2. Diabetes mellitus Sliding-scale insulin Monitor blood glucose 3. Hypothyroidism/hypertension/hyperlipidemia Continue home medications Discharge Planning dc home today with f/u by pcp. see med list. d/w the patient. Wanda Galvez MD Aug 07, 2017 11:26
[2017-08-07] MEDS ORDERED: DOXY100C PO (11:28)
--- NOTE | 2017-08-07 11:31 | HHI.DS ---
Discharge Summary Admission Date Aug 04, 2017 at 21:46 Discharge Date: Aug 07, 2017 Admitting Diagnosis Cellulitis of abdo failing outpt PO antiBx (1) Cellulitis ICD Code: L03.90 - Cellulitis, unspecified Diagnosis: Principal Procedures none Brief History - From Admission 80-year-old male with a past medical history significant for diabetes mellitus, hypothyroidism, hypertension and hyperlipidemia presents to the emergency department for evaluation of cellulitis of his back. The patient was released from [facility] yesterday morning after being treated with IV vancomycin and clindamycin. He was discharged on oral clindamycin. Wound cultures were "inconclusive" per the family. Incision and drainage was performed to the emergency department with minimal expression of purulent material. CT of the chest showed minimally ill-defined fat stranding containing punctate pockets of air compatible with cellulitis and no well organized walled off peripherally enhancing fluid collection. Since his discharge from the hospital the area of erythema has expanded. There are 2 small incisions draining purulent material. No fevers/chills. No chest pain or shortness of breath. No abdominal pain. No nausea/vomiting/diarrhea. No lateralizing signs/symptoms. CBC/BMP: 08/06/17 0745 08/06/17 0745 Significant Findings Laboratory Tests Test 08/04/17 19:33 08/06/17 07:45 Monocytes (%) (Auto) 9.0 % (0.0-8.0) Estimat Glomerular Filtration Rate 61 ML/MIN (>89) 54 ML/MIN (>89) Eosinophils (%) (Auto) 4.2 % (0.0-4.0) Eosinophils % 8 % (0-4) Blastocytes 2 % (0-0) Blood Urea Nitrogen 20 MG/DL (7-18) PE at Discharge GENERAL: This is a well-nourished, well-developed patient, in no apparent distress. CARDIOVASCULAR: Regular rate and regular rhythm without murmurs, gallops, or rubs. RESPIRATORY: Clear to auscultation. Breath sounds equal bilaterally. No wheezes , rales, or rhonchi. GASTROINTESTINAL: Abdomen soft, non-tender, nondistended. Normal, active bowel sounds MUSCULOSKELETAL: Extremities without clubbing, cyanosis, or edema. NEURO: Alert & Oriented x4 to person, place, time, situation. Moves all ext x4 skin; mild erythema over the right chest wall- seems to be improving. Hospital Course patient was admitted with cellulitis/ abscess of the right chest wall- he had I /D in ER at [facility] along with CT of the thorax done at [facility] which did not show any distinct abscess.evaluated by surgery and no surgery recommended.wound culture with MRSA and blood cultures negative. he was treated with Vanco. this will be switched to po Doxycycline upon discharge with f/u by his pcp. he will continue with other home meds as before. Pt Condition on Discharge: Good Discharge Disposition: Discharge Home Discharge Time: <= 30 minutes Discharge Instructions DIET: Follow Instructions for: Heart Healthy Diet, Diabetic Diet Activities you can perform: Regular-No Restrictions Wanda Galvez MD Aug 07, 2017 11:31
[2017-08-07 12:00] VITALS: BP 141/91; PULSE 66; RESP 18; TEMP 97.8; O2SAT 93
[2017-08-08] MEDS ORDERED: PHARMACY ORDERED LAB ONE (00:45)
== END 2017-08-07 13:57 | disposition home or self-care (01) | DRG 603 ==
LOC: NEPE 18:08 → NEDA 21:46 → N07B 08-05 01:21
PROVIDERS: ADMIT Internal Medicine; ATTEND Internal Medicine
DX: L03.312 Cellulitis of back [any part except buttock and flank] (principal); E11.9 Type 2 diabetes mellitus without complications; I10 Essential (primary) hypertension; E78.5 Hyperlipidemia, unspecified; Z79.4 Long term (current) use of insulin; E89.0 Postprocedural hypothyroidism; Z85.46 Personal history of malignant neoplasm of prostate; Z85.850 Personal history of malignant neoplasm of thyroid
CPT/HCPCS: 80048; 80053; 82550; 82948; 83605; 85007; 85027; 86403; 87040; 87070; 87147; 87186; 87205; J1644; J1815; J2543; J3370; J7040; J7050